=== PATIENT | female | born 1975 | race Caucasian/White ===

== ENCOUNTER 2020-06-25 15:30 | Inpatient (IN) | payer OTHER ==
[~2020-06-25] VITALS: Ht 180.3 cm; Wt 106.0 kg
[~2020-06-25 15:30] MED LIST: Norvasc5 MG PO; ONDA4ODT MM
[2020-06-25 16:54] LABS: BASOPHILS ABSOLUTE AUTO 0.03 K/mm3 (0.00-0.23); BASOPHILS PERCENT AUTO 0 % (0-2); EOSINOPHILS ABSOLUTE AUTO 0.08 K/mm3 (0.00-0.68); EOSINOPHILS PERCENT AUTO 1 % (0-6); Hematocrit 42.7 % (33.0-51.0); Hemoglobin 14.1 g/dL (11.5-16.0); IMMATURE GRAN ABSOLUTE AUTO 0.03 K/mm3 (0.00-0.10); IMMATURE GRAN PERCENT AUTO 0 % (0-1); LYMPHOCYTES ABSOLUTE AUTO 2.61 K/mm3 (0.84-5.20); LYMPHOCYTES PERCENT AUTO 24 % (21-46); MONOCYTES ABSOLUTE AUTO 0.82 K/mm3 (0.16-1.47); MONOCYTES PERCENT AUTO 7 % (4-13); Mean Corpuscular HGB 29.5 pg (26.0-34.0); Mean Corpuscular Volume 89 fL (80-100); Mean Platelet Volume 10.3 fL (9.1-12.4); NEUTROPHILS ABSOLUTE AUTO 7.53 K/mm3 (1.96-9.15); NEUTROPHILS PERCENT AUTO 68 % (41-73); Platelet Count 363 K/mm3 (150-400); RDW Coefficient Variation 13.2 % (11.7-14.2); RDW Standard Deviation 43.7 fL (35.1-46.3); Red Blood Cell Count 4.78 M/mm3 (3.80-5.20)
[2020-06-25 17:42] LABS: Alanine Aminotransfer (ALT/SGP 32 U/L (12-78); Albumin, Blood 3.5 g/dL (3.4-5.0); Albumin/Globulin Ratio 0.9 (0.8-1.8); Alk Phos 102 U/L (50-136); Anion Gap 9 mmol/L (6-16); Aspartate Aminotrans (AST/SGOT 43 U/L (12-37); Bilirubin, Total 0.5 mg/dL (0.1-1.0); Blood Urea Nitrogen 10 mg/dL (8-24); Bun/Creatinine Ratio 15.8 (12.0-20.0); CO2, Blood 24 mmol/L (21-32); Calcium, Blood 8.9 mg/dL (8.5-10.1); Chloride, Blood 107 mmol/L (98-108); Creatinine, Blood 0.63 mg/dL (0.40-1.00); Globulin, Blood 4.1 g/dL (2.2-4.0); Glomerular Filtration Rate >60 (60-); Glucose, Blood 108 mg/dL (70-99); Potassium, Blood 3.4 mmol/L (3.5-5.5); Sodium, Blood 140 mmol/L (136-145); Total Protein, Blood 7.6 g/dL (6.4-8.2)
[2020-06-25 18:27] LABS: International Normalized Ratio 0.96; Prothrombin Time Results 10.3 Sec (9.7-11.5)
[2020-06-26 03:23] LABS: CHOL/HDL RATIO 2.5; Cholesterol 184 mg/dL (50-200); HDL Cholesterol 75 mg/dL (>39); LDL/HDL RATIO 1.3; Low Density Lipoprotein Chol 97 mg/dL (0-110); Triglycerides 61 mg/dL (30-160); Very Low Density Lipoprot Chol 12 mg/dL (6-32)
--- NOTE | 2020-06-26 09:10 | NUR ---
Echocardiogram completed.
--- NOTE | 2020-06-26 16:00 | NUR ---
PT TRANSFERRED TO ROOM PCU 7, RN FOLLOWED PT OVER FROM ICU TO PCU AND CONTINUING CARE. PT REMAINS NPO FOR POSSIBLE HEART CATH. PT CURRENTLY FEELING NAUSEATED, SEE EMAR FOR DOCUMENTATION. HEPARIN GTT CONTINUED ON TRANSFER. TELEMETRY PLACED AND VERIFIED WITH MULTIMEDIA DESIGNER. VITALS REMAIN STABLE AND BP IS CURRENTLY WNL. HEADACHE IS GREATLY IMPROVED THIS AFTERNOON.
--- NOTE | 2020-06-26 18:01 | NUR ---
SHIFT SUMMARY PT IS ALERT AND ORIENTED. PER PT REPORT HEADACHE IS PRACTICALLY GONE. TELEMETRY HAS SHOWN PT TO BE IN SINUS RHYTHM AND BP HAS IMPROVED AND REMAINED STABLE TODAY. HEPARIN GTT REMAINS INFUSING PER PHARMACY DOSING. SEE EMAR FOR DOCUMENTATION. PT WAS PLANNED TO GO TO [facility] USE MEDICAL COORDINATOR TODAY, HOWEVER DR SURESH CALLED AND SAID PT WILL BE DELAYED UNTIL TOMORROW. ORDERS RECEIVED FOR NPO AFTER MN. FAMILY UPDATED ON PT STATUS.
[2020-06-27 04:06] LABS: Mean Platelet Volume 9.8 fL (9.1-12.4); Platelet Count 344 K/mm3 (150-400)
--- NOTE | 2020-06-27 05:57 | NUR ---
SHIFT SUMMAR: PATIENT CABRAL UNDER CONTROL, SBP IMPROVED NO OTHER ISSUES NOTED.
--- NOTE | 2020-06-27 09:13 | NUR ---
ASSUMED CARE: ANGIOGRAM DONE EARLY THIS AM AFTER SHIFT CHANGE, PT CAME BACK TO THE ROOM WITH RIGHT RADIAL ACCESS SITE, 9CC OF AIR ON TR BAND, NO HEMATOMA/BLEEDING NOTED ON THE SITE. VITALS HAS BEEN STABLE. NO PCI NOTED ON THE PROCEDURE. DR SURESH ORDERED MEDCIATION CHANGES AND RENAL DUPLEX SCAN, PT CURRENTLY DOING DUPLEX SCAN WILL MONITOR
[2020-06-27 13:01] LABS: Anion Gap 6 mmol/L (6-16); Blood Urea Nitrogen 16 mg/dL (8-24); Bun/Creatinine Ratio 17.6 (12.0-20.0); CO2, Blood 26 mmol/L (21-32); Calcium, Blood 8.8 mg/dL (8.5-10.1); Chloride, Blood 104 mmol/L (98-108); Creatinine, Blood 0.91 mg/dL (0.40-1.00); Glomerular Filtration Rate >60 (60-); Glucose, Blood 88 mg/dL (70-99); Potassium, Blood 3.4 mmol/L (3.5-5.5); Sodium, Blood 136 mmol/L (136-145)
--- NOTE | 2020-06-27 18:31 | NUR ---
PT SUMMARY: TROPONIN TRENDING DOWN. POST ANGIO TODAY NO PCI PER REPORT, CORONARY VASOSPASM NOTED, PT STARTED ON COREG AND IMDUR. RENAL DUPLEX SCAN DONE RESULT CAME BACK WITH NO STENOSIS. BP CONTROLLED NOW ON THE 120'S HOWEVER PT STILL C/O HEADACHE AND NAUSEA DR WALTERS IS AWARE PT TO KEEP OVER THE NIGHT FOR OBSERVATION FOR POSSIBLE DISCHARGE TOMORROW IF NO ACUTE CHANGE. REGLAN AND TRAMADOL PRN. WILL REPORT TO ONCOMING SHIFT
--- NOTE | 2020-06-27 21:27 | NUR ---
ASSUMED CARE OF PATIENT AT APPROXIMATELY 1910 FROM VINAY Holland RN. PATIENT ALERT AND ORIENTED X4; SBA OUT OF BED DUE TO S/P ANGIO TODAY. PATIENT REPORTS HEADACHE 2/; REFUSED TYLENOL. PATIENT DENIES NUMBNESS, TINGLING OR DIZZINESS. PATIENT REPORTS NAUSEA THAT IS IMPROVING; REFUSED IV ZOFRAN. COOL WASHCLOTH TO FOREHEAD. RIGHT RADIAL SITE WNL; NO S/S OF BLEEDING, HEMATOMA OR BRUISING NOTED. PIV X2 S/L. NSR ON TELE; OXYGEN SATURATION ABOVE 90% ON ROOM AIR. PATIENT CURRENTLY RESTING IN BED; CALL LIGHT IN REACH; BED IN LOWEST POSISTION; WILL CONTINUE TO MONITOR AND ASSESS UNTIL END OF SHIFT.
--- NOTE | 2020-06-28 06:15 | NUR ---
NO ACUTE CHANGES TO REPORT. BLOOD PRESSURES 130-140'S. MEDICATED ONCE FOR PAIN. VSS. WILL CONTINUE TO MONITOR AND ASSESS UNTIL END OF SHIFT.
[2020-06-28] MEDS ORDERED: Aspir 8181 MG PO (11:29)
[2020-06-28] MEDS ORDERED: CARV3.125 PO (11:30)
[2020-06-28] MEDS ORDERED: ATOR80 PO (11:30)
[2020-06-28] MEDS ORDERED: Isosorbide Mono30 MG PO (11:30)
[2020-06-28] MEDS ORDERED: ZESTRIL40 M1 PO (11:31)
[2020-06-28] MEDS ORDERED: TRAM50 PO (11:31)
[2020-06-28] MEDS ORDERED: AMLO5 PO (22:13)
[2020-07-01] MEDS ORDERED: Nitroglycerin1 EAC3 TOP (12:14)
[2020-07-01] MEDS ORDERED: METO50ER PO (12:14)
[2020-07-01] MEDS ORDERED: ACET325 PO (12:14)
== END 2020-06-28 12:10 | disposition home or self-care (01) | DRG 281 ==
LOC: ER 15:30 → ERHOLD 18:46 → PCU 18:46 → ICUE 18:46 → PCU 06-26 15:46
PROVIDERS: Emergency Medicine; Hospitalist; ADMIT Internal Medicine
PROC: 4A023N7 Measurement of Cardiac Sampling and Pressure, Left Heart, Percutaneous Approach (ICD-10-PCS; principal; 2020-06-27)
PROC: B2111ZZ Fluoroscopy of Multiple Coronary Arteries using Low Osmolar Contrast (ICD-10-PCS; 2020-06-27)
DX: I21.4 Non-ST elevation (NSTEMI) myocardial infarction (principal); I16.1 Hypertensive emergency; Z87.891 Personal history of nicotine dependence; I10 Essential (primary) hypertension; E66.9 Obesity, unspecified; Z68.34 Body mass index [BMI] 34.0-34.9, adult; D15.0 Benign neoplasm of thymus
CPT/HCPCS: 36415; 71045; 71260; 80048; 80053; 80061; 84484; 85025; 85049; 85379; 85610; 85730; 93005; 93010; 93306; 93458; 93975; 96365; 96366; 96375; 96376; 99152; 99153; 99285-25; A9270; A9270-GY; C1769; C1894; J0360; J1644; J2060; J2250; J2405; J2765; J3010; J7030; J7040; J7050; Q9967

== ENCOUNTER → 2020-10-18 | Outpatient (CLI) | payer OTHER ==
[~2020-10-18] MED LIST changes: +ACET325 PO; +AMLO5 PO; +ATOR80 PO; +Aspir 8181 MG PO; +CARV3.125 PO; +Isosorbide Mono30 MG PO; +METO50ER PO; +Nitroglycerin1 EAC3 TOP; +TRAM50 PO; +ZESTRIL40 M1 PO
[2020-10-18 18:15] LABS: BASOPHILS ABSOLUTE AUTO 0.06 K/mm3 (0.00-0.23); BASOPHILS PERCENT AUTO 1 % (0-2); EOSINOPHILS ABSOLUTE AUTO 0.08 K/mm3 (0.00-0.68); EOSINOPHILS PERCENT AUTO 1 % (0-6); Hematocrit 42.6 % (33.0-51.0); Hemoglobin 14.1 g/dL (11.5-16.0); IMMATURE GRAN ABSOLUTE AUTO 0.07 K/mm3 (0.00-0.10); IMMATURE GRAN PERCENT AUTO 1 % (0-1); LYMPHOCYTES ABSOLUTE AUTO 3.46 K/mm3 (0.84-5.20); LYMPHOCYTES PERCENT AUTO 36 % (21-46); MONOCYTES PERCENT AUTO 7 % (4-13); Mean Corpuscular HGB 29.8 pg (26.0-34.0); Mean Corpuscular HGB Conc 33.1 g/dL (31.5-36.5); Mean Corpuscular Volume 90 fL (80-100); Mean Platelet Volume 10.6 fL (9.1-12.4); NEUTROPHILS ABSOLUTE AUTO 5.33 K/mm3 (1.96-9.15); NEUTROPHILS PERCENT AUTO 55 % (41-73); Platelet Count 344 K/mm3 (150-400); RDW Coefficient Variation 13.2 % (11.7-14.2); RDW Standard Deviation 43.2 fL (35.1-46.3); Red Blood Cell Count 4.73 M/mm3 (3.80-5.20)
[2020-10-18 18:33] LABS: Very Low Density Lipoprot Chol 19 mg/dL (6-32)
[2020-10-18 18:35] LABS: Alanine Aminotransfer (ALT/SGP 58 U/L (12-78); Albumin, Blood 3.9 g/dL (3.4-5.0); Alk Phos 118 U/L (50-136); Anion Gap 8 mmol/L (6-16); Aspartate Aminotrans (AST/SGOT 29 U/L (12-37); Bilirubin, Total 0.4 mg/dL (0.1-1.0); Blood Urea Nitrogen 17 mg/dL (8-24); CHOL/HDL RATIO 1.8; CO2, Blood 23 mmol/L (21-32); Calcium, Blood 9.4 mg/dL (8.5-10.1); Chloride, Blood 108 mmol/L (98-108); Cholesterol 114 mg/dL (50-200); Creatinine, Blood 0.85 mg/dL (0.40-1.00); Globulin, Blood 3.9 g/dL (2.2-4.0); Glomerular Filtration Rate >60 (60-); Glucose, Blood 82 mg/dL (70-99); HDL Cholesterol 63 mg/dL (>39); LDL/HDL RATIO 0.5; Low Density Lipoprotein Chol 32 mg/dL (0-110); Sodium, Blood 139 mmol/L (136-145); Total Protein, Blood 7.8 g/dL (6.4-8.2); Triglycerides 95 mg/dL (30-160)
== END ==
LOC: LAB 16:36
PROVIDERS: Nurse Practitioner Family
DX: I10 Essential (primary) hypertension (principal)
CPT/HCPCS: 80053; 80061; 85025

== ENCOUNTER → 2020-11-08 | Outpatient (CLI) | payer OTHER ==
[2020-11-08 18:32] LABS: Free Thyroxine 0.87 ng/dL (0.70-1.60)
[2020-11-08 18:34] LABS: Thyroid Stimulating Hormone 2.37 uIU/mL (0.360-4.800)
[2020-11-09 07:12] LABS: HIV SCREEN 4TH GENERATION WRFX Non Reactive (Non Reactive)
[2020-11-09 10:07] LABS: HCV ANTIBODY 0.2 (0.0-0.9)
== END | disposition home or self-care (01) ==
LOC: LAB SHORT 08:40
PROVIDERS: Nurse Practitioner Family
DX: Z00.00 Encounter for general adult medical examination without abnormal findings (principal); R53.83 Other fatigue
CPT/HCPCS: 84439; 84443; 86376; 86803; 87389

== ENCOUNTER → 2022-04-10 | Outpatient (CLI) | payer OTHER ==
[2022-04-10 17:42] LABS: Alanine Aminotransfer (ALT/SGP 35 U/L (12-78); Albumin, Blood 3.5 g/dL (3.4-5.0); Albumin/Globulin Ratio 0.9 (0.8-1.8); Alk Phos 84 U/L (50-136); Anion Gap 6 mmol/L (6-16); Aspartate Aminotrans (AST/SGOT 19 U/L (12-37); Bilirubin, Total 0.4 mg/dL (0.1-1.0); Blood Urea Nitrogen 14 mg/dL (8-24); CHOL/HDL RATIO 1.8; CO2, Blood 25 mmol/L (21-32); Calcium, Blood 8.9 mg/dL (8.5-10.1); Chloride, Blood 109 mmol/L (98-108); Cholesterol 106 mg/dL (50-200); Globulin, Blood 3.8 g/dL (2.2-4.0); Glucose, Blood 99 mg/dL (70-99); HDL Cholesterol 58 mg/dL (>39); LDL/HDL RATIO 0.6; Low Density Lipoprotein Chol 34 mg/dL (0-110); Potassium, Blood 4.3 mmol/L (3.5-5.5); Sodium, Blood 140 mmol/L (136-145); Total Protein, Blood 7.3 g/dL (6.4-8.2); Triglycerides 70 mg/dL (30-160); Very Low Density Lipoprot Chol 14 mg/dL (6-32)
[2022-04-10 17:49] LABS: Bun/Creatinine Ratio 20.4 (12.0-20.0); Creatinine, Blood 0.69 mg/dL (0.40-1.00); Glomerular Filtration Rate 107 (60-)
== END | disposition home or self-care (01) ==
LOC: LAB 09:15 → LAB SHORT 09:15
PROVIDERS: Nurse Practitioner Family
DX: I10 Essential (primary) hypertension (principal); E66.9 Obesity, unspecified
CPT/HCPCS: 80053; 80061; 83036; 84443

== ENCOUNTER → 2022-06-05 | Outpatient (CLI) | payer OTHER | END | disposition home or self-care (01) | LOC: LAB 16:22 → LAB SHORT 16:22 → LAB FUT 06-05 12:00 | DX: N39.0 Urinary tract infection, site not specified (principal) | CPT/HCPCS: 87077; 87086; 87186 ==

== ENCOUNTER → 2022-08-07 | Outpatient (CLI) | payer OTHER | END | disposition home or self-care (01) | LOC: LAB 10:30 → LAB SHORT 10:30 | DX: R30.9 Painful micturition, unspecified (principal) | CPT/HCPCS: 87086 ==

== ENCOUNTER → 2025-10-18 | Outpatient (CLI) | payer OTHER ==
[2025-10-18 17:55] LABS: BASOPHILS ABSOLUTE AUTO 0.04 K/mm3 (0.00-0.23); BASOPHILS PERCENT AUTO 1 % (0-2); EOSINOPHILS ABSOLUTE AUTO 0.04 K/mm3 (0.00-0.68); EOSINOPHILS PERCENT AUTO 1 % (0-6); Hematocrit 40.8 % (33.0-51.0); Hemoglobin 13.4 g/dL (11.5-16.0); IMMATURE GRAN ABSOLUTE AUTO 0.01 K/mm3 (0.00-0.10); IMMATURE GRAN PERCENT AUTO 0 % (0-1); LYMPHOCYTES ABSOLUTE AUTO 1.84 K/mm3 (0.84-5.20); LYMPHOCYTES PERCENT AUTO 32 % (21-46); MONOCYTES ABSOLUTE AUTO 0.42 K/mm3 (0.16-1.47); MONOCYTES PERCENT AUTO 7 % (4-13); Mean Corpuscular HGB Conc 32.8 g/dL (31.5-36.5); Mean Corpuscular Volume 89 fL (80-100); NEUTROPHILS ABSOLUTE AUTO 3.34 K/mm3 (1.96-9.15); NEUTROPHILS PERCENT AUTO 59 % (41-73); NRBC ABSOLUTE 0.00 K/mm3 (0.00-0.02); NRBC Auto 0.0 /100 WBC (0.0-0.2); Platelet Count 332 K/mm3 (150-400); RDW Coefficient Variation 13.0 % (11.7-14.2); RDW Standard Deviation 42.4 fL (35.1-46.3)
[2025-10-18 19:49] LABS: Alanine Aminotransfer (ALT/SGP 23 U/L (12-78); Albumin, Blood 3.5 g/dL (3.4-5.0); Albumin/Globulin Ratio 0.9 (0.8-1.8); Anion Gap 5 mmol/L (3-11); Aspartate Aminotrans (AST/SGOT 11 U/L (12-37); Bilirubin, Total 0.3 mg/dL (0.1-1.0); Blood Urea Nitrogen 14 mg/dL (8-24); CHOL/HDL RATIO 2.6; CO2, Blood 28 mmol/L (21-32); Calcium, Blood 8.7 mg/dL (8.5-10.1); Chloride, Blood 109 mmol/L (98-108); Cholesterol 153 mg/dL (50-200); Creatinine, Blood 0.80 mg/dL (0.40-1.00); Ferritin, Serum 65 ng/mL (8-252); Globulin, Blood 3.8 g/dL (2.2-4.0); Glucose, Blood 93 mg/dL (70-99); HDL Cholesterol 59 mg/dL (>39); LDL/HDL RATIO 1.3; Low Density Lipoprotein Chol 79 mg/dL (0-110); Potassium, Blood 4.1 mmol/L (3.5-5.5); Sodium, Blood 138 mmol/L (136-145); Thyroid Stimulating Hormone 2.070 uIU/mL (0.360-4.800); Total Iron Binding Capacity 310 ug/dL (250-450); Total Protein, Blood 7.3 g/dL (6.4-8.2); Triglycerides 77 mg/dL (30-160); Very Low Density Lipoprot Chol 15 mg/dL (6-32)
== END ==
LOC: LAB SHORT 16:30 → LAB 16:30
PROVIDERS: Family Medicine
DX: E78.5 Hyperlipidemia, unspecified (principal); I10 Essential (primary) hypertension; E55.9 Vitamin D deficiency, unspecified; R53.82 Chronic fatigue, unspecified
CPT/HCPCS: 80053; 80061; 82306; 82728; 83525; 83540; 83550; 84443; 85025